=== PATIENT | male | born 1995 | race Caucasian/White ===

== ENCOUNTER 2018-03-08 07:55 | Emergency (ER) | payer SELFPAY, MEDICAID ==
[2018-03-08] MEDS: IBUPROFEN 800 MG TAB PO (08:31)
== END 2018-03-08 10:42 | disposition home or self-care (01) ==
LOC: FTE 07:55
DX: S93.402A Sprain of unspecified ligament of left ankle, initial encounter (principal); S20.212A Contusion of left front wall of thorax, initial encounter; F17.210 Nicotine dependence, cigarettes, uncomplicated; V49.40XA Driver injured in collision with unspecified motor vehicles in traffic accident, initial encounter
CPT/HCPCS: 71045; 71100; 73610; 99284-25

== ENCOUNTER 2018-11-25 13:21 | Emergency (ER) | payer SELFPAY ==
[2018-11-25] MEDS ORDERED: LIDOCAINE 1% (MDV) 10 ML INJ INJ (15:09)
[2018-11-25] MEDS: HYDROCODONE/APAP (10/325) TAB PO ×2 (15:33→17:13)
[2018-11-25] MEDS: LIDOCAINE 1% (MDV) 20 ML INJ INJ (15:37)
== END 2018-11-25 17:21 | disposition home or self-care (01) ==
LOC: FTE 17:21
DX: S61.012A Laceration without foreign body of left thumb without damage to nail, initial encounter (principal); F17.210 Nicotine dependence, cigarettes, uncomplicated; W31.2XXA Contact with powered woodworking and forming machines, initial encounter; Y92.89 Other specified places as the place of occurrence of the external cause
CPT/HCPCS: 12002; 73140; 99283-25

== ENCOUNTER 2018-11-30 10:28 | Emergency (ER) | payer SELFPAY | END 2018-11-30 11:31 | disposition home or self-care (01) | LOC: FTE 11:31 | DX: S61.012D Laceration without foreign body of left thumb without damage to nail, subsequent encounter (principal); F17.210 Nicotine dependence, cigarettes, uncomplicated; W31.2XXD Contact with powered woodworking and forming machines, subsequent encounter | CPT/HCPCS: 99281 ==

== ENCOUNTER 2018-12-04 13:27 | Emergency (ER) | payer SELFPAY | END 2018-12-04 13:58 | disposition home or self-care (01) | LOC: E/R 13:58 | DX: Z48.02 Encounter for removal of sutures (principal); Z87.891 Personal history of nicotine dependence | CPT/HCPCS: 99281 ==